=== PATIENT | female | born 2000 | race Caucasian/White ===

== ENCOUNTER → 2021-03-06 16:53 | Outpatient (CLI) | payer OTHER, BC, SELFPAY | PROVIDERS: Visit Provider Nurse Practitioner Family | DX: Z20.822 Contact with and (suspected) exposure to COVID-19 (principal); J02.9 Acute pharyngitis, unspecified | CPT/HCPCS: C9803; U0003; U0005 ==

== ENCOUNTER 2021-03-17 11:10 | Emergency (ER) | payer OTHER, SELFPAY ==
[2021-03-17 11:22] VITALS: BP 133/60; PULSE 83; RESP 16; TEMP 37; O2SAT 97; BMI 32.5
--- NOTE | 2021-03-17 11:26 | HMH.EDGENADL ---
ED Disposition Clinical Impression: Avulsion of skin of finger Qualifiers: Encounter type: initial encounter Qualified Code(s): S61.209A - Unspecified open wound of unspecified finger without damage to nail, initial encounter Disposition: Home, Self-Care Condition on Discharge: Good Additional Instructions: You have been evaluated for injury, skin avulsion. Please use topical antibiotic. Keep wound clean and dry for 24 hours. OK to wash with soap and water after that. Dress wound with bandage and non-adherent. Keep it elevated. Tylenol for pain. Follow-up with your primary care doctor for wound check within 1 week.. Return to the emergency department for any new or worsening symptoms, redness, drainage, swelling, signs of infection Referrals: Katerina Abad APRN [Primary Care Provider] - Time of Disposition: 11:34 - Critical Care Critical Care Time: No Attestation: On 03/17/21, the high probability of a clinically significant, sudden or life threatening deterioration of the following system(s) required my full and direct attention, intervention and personal management. The time I documented below is in addition to time spent performing reported procedures but includes the following listed in this critical care notation. Medical Decision Making - Medical Records Medical records reviewed: Yes: I reviewed the patient's medical records. - Dre Inquiry Pt receiving controlled substance: No Vital Signs: 03/17/21 11:22 Temperature 98.6 F Temperature Source Oral Pulse Rate [Left Radial] 83 Respiratory Rate 16 Blood Pressure [Right Arm] 133/60 Blood Pressure Mean [Right Arm] 84 Blood Pressure Source [Right Arm] Automatic Cuff Blood Pressure Position [Right Arm] Sitting 02 Sat by Pulse Oximetry 97 Oxygen Delivery Method Room Air Orders (Tests/Meds): ED MEDICATIONS Discontinued Medications Generic Name Dose Route Start Last Admin Trade Name Freq PRN Reason Stop Dose Admin Lidocaine HCl 5 ml 03/17/21 11:20 Lidocaine 1% 10ml Mdv IJ 03/17/21 11:21 ONCE ONE Medical Decision Narrative: In summary this is a 20-year-old [id number] female presenting to the emergency department with an avulsion injury to the distal aspect of the middle finger of the left hand. Patient clinically stable on arrival. Vital signs within normal limits. Tetanus up-to-date. Digital block performed with lidocaine. Well-tolerated. She had significant improvement in the pain. Wounds copiously irrigated with Hibiclens and water. There is not a flap or laceration amenable to repair. Dressed with nonadherent bandage. Patient counseled on wound care. Given return precautions. General Adult HPI - General Stated complaint: Cut tip of middle finger L hand Time Seen by Provider: 03/17/21 11:16 Mode of Arrival: Ambulatory Source of Information: Patient Limitations: No Limitations - History of Present Illness HPI narrative: 20-year-old female presenting to the emergency department with an injury to the middle finger of her left hand. Just prior to arrival, she was cutting the top off of a bottle. The knife she was using slipped and cut the distal aspect of her middle finger. She has an avulsion injury of the skin at the tip of the finger. Possibly a tiny courtney out of the corner of the nail. No pain in other parts of the finger. Bleeding is controlled with pressure. She is 16 weeks . No medications prior to arrival. - Related Data Home Medications Medication Instructions Recorded Confirmed sertraline 100 mg tablet 100 mg PO DAILY 03/01/20 03/06/21 promethazine 12.5 mg tablet 12.5 mg PO Q6H PRN 03/06/21 03/06/21 Allergies Allergy/AdvReac Type Severity Reaction Status Date / Time No Known Allergies Allergy Verified 03/06/21 15:43 [facility] History - Hepatitis A Screen Attestation statement:: This patient has been screened for Hepatitis A risk factors. Medical History: [place]
[2021-03-17 13:19] VITALS: BP 128/62; PULSE 80; RESP 16; TEMP 37; O2SAT 99
== END 2021-03-17 13:20 | disposition home or self-care (01) ==
PROVIDERS: Emergency Provider Emergency Medicine; PCP Nurse Practitioner Family
DX: S61.213A Laceration without foreign body of left middle finger without damage to nail, initial encounter (principal); W26.0XXA Contact with knife, initial encounter; Y92.019 Unspecified place in single-family (private) house as the place of occurrence of the external cause; F33.1 Major depressive disorder, recurrent, moderate; Z3A.16 16 weeks gestation of pregnancy
CPT/HCPCS: 12001; 99281

== ENCOUNTER 2021-07-07 15:21 | Outpatient (CLI) | payer OTHER, BC, SELFPAY ==
[2021-07-07 15:38] VITALS: BMI 31.0
[2021-07-07 16:29] VITALS: BP 129/69; PULSE 92; RESP 18; TEMP 37; O2SAT 98; BMI 36.0
--- NOTE | 2021-07-07 17:26 | HMH.ACPN2 ---
Internal Medicine - PN: Subj *Date: 07/07/21 *Time: 17:26 Interval history: She is a 20-year-old 2 para 1 at 32 weeks gestational age. Her child has a gastroenteritis and she has had some nausea, vomiting and diarrhea recently. She is a mildly dehydrated. She feels dizzy. Baby is active and nonstress test is reactive. Exam Vital signs and Labs for Last 24 Hours: Temp Pulse Resp BP Pulse Ox 98.6 F 92 H 18 129/69 98 07/07/21 16:29 07/07/21 16:29 07/07/21 16:29 07/07/21 16:29 07/07/21 16:29 I & O for Last 24 hours: Intake & Output 07/05/21 07/06/21 07/07/21 07/08/21 11:59 11:59 11:59 11:59 Weight 210 lb - Constitutional no acute distress - *Routine HEENT Exam Head: Present: normocephalic Eye: Present: EOMI, PERRL ENT: Present: mucous membranes moist Assessment and Plan (1) Nausea and vomiting of , antepartum Status: Acute Category: Medical Code(s): O21.9 - Vomiting of , unspecified (2) Dehydration during Status: Acute Category: Medical Code(s): O99.280 - Endocrine, nutritional and metabolic diseases complicating , unspecified trimester; E86.0 - Dehydration - Assessment and plan all Dx Assessment and Plan for all problems:: She received a liter of fluid and feels much better. She does have some Zofran at home and I encouraged her to take this. I have encouraged her to drink plenty of fluids. She has an appoint with her doctor in [place] in 48 hours.
== END 2021-07-07 17:40 | disposition home or self-care (01) ==
LOC: OBOUT 15:26 → OB 15:27
PROVIDERS: Visit Provider Nurse Practitioner Obstetrics & Gynecology
DX: O26.893 Other specified pregnancy related conditions, third trimester (principal); Z3A.32 32 weeks gestation of pregnancy; R11.2 Nausea with vomiting, unspecified; R19.7 Diarrhea, unspecified; E86.0 Dehydration
CPT/HCPCS: 59025; 96365; G0463

== ENCOUNTER 2022-03-27 16:35 | Emergency (ER) | payer OTHER, BC, SELFPAY ==
[2022-03-27 17:16] VITALS: BP 148/89; PULSE 90; RESP 18; TEMP 36.7; O2SAT 98; BMI 33.7
--- NOTE | 2022-03-27 17:51 | EXP.UTC ---
Discharge Plan Disposition Patient Disposition: Home, Self-Care Condition: Good Prescriptions Prescriptions: New meclizine 25 mg tablet 25 mg PO TID PRN (Reason: dizziness) Qty: 20 0RF fluticasone propionate [Flonase Allergy Relief] 50 mcg/actuation spray,suspension 1 spray intranasal DAILY Qty: 16 0RF Rx Instructions: administer into each nostril methylprednisolone [Medrol (Robi)] 4 mg tablets,dose pack See Rx Instructions .Route .COMPLEX 6 Days Qty: 21 0RF Rx Instructions: taper pack; No Action promethazine 12.5 mg tablet 12.5 mg PO Q6H PRN sertraline [Zoloft] 100 mg tablet 100 mg PO DAILY Referrals Follow up/Referrals: Provider,Referral, MD [Primary Care Provider] - See instructions Activity Restrictions/Add. Instructions Additional Instructions/Restrictions: Take medication as prescribed Follow up with your Family Doctor if no improvement or any worsening of symptoms Make sure to follow up if you continued to have numbness in finges on and off Straight to ER if any life threatening symptoms Clinical Impressions Clinical Impression: Vertigo Instructions Patient Instructions: DI for Vertigo, Vertigo, Meclizine Discharge ED Provider: Tina Marie [facility] General Stated complaint: nausea x 1 week,dizzy Mode of Arrival: Ambulatory Source of Information: Patient Limitations: No Limitations Time Seen by Provider: 03/27/22 17:52 Description of Symptoms (Recalled from Triage Doc. by RN): pt coes in with c/o dizziness, nausea, and left hand numbness. symptoms ongoing for 1 week HEENT Symptoms (Recalled from RN notes): No Resp Symptoms (Recalled from RN notes): No Skin Symptoms (Recalled from RN notes): No MS Symptoms (Recalled from RN notes): No Functional Status (Recalled from RN notes): n/a History of Present Illness Provider Complaint: Patient state that for about a week she has been having dizziness at times States that it feels like the room is spinning around her States that also she has been having tingling and numbness on and off in her left ring and little finger but not having any numbness at this time States that this evening she was still having a little dizziness so she came in Related Data Home Medications Medication Instructions Recorded Confirmed sertraline 100 mg tablet (Zoloft) 100 mg PO DAILY Anxiety 03/01/20 03/27/22 promethazine 12.5 mg tablet 12.5 mg PO Q6H PRN 03/06/21 03/06/21 Previous Rx's Medication Instructions Recorded fluticasone propionate 50 1 spray intranasal DAILY #16 grams 03/27/22 mcg/actuation nasal spray,suspension (Flonase Allergy Relief) meclizine 25 mg tablet 25 mg PO TID PRN dizziness #20 tabs 03/27/22 methylprednisolone 4 mg tablets in See Rx Instructions .Route 03/27/22 a dose pack (Medrol (Robi)) .COMPLEX 6 days #21 tabs Allergies Allergy/AdvReac Type Severity Reaction Status Date / Time No Known Allergies Allergy Verified 03/27/22 17:18 Worker's Comp Is this a Worker's Comp case?: No [facility] Disclaimer: The information contained in this section may have been updated after the patient was seen, as this information can be updated by other users. Social History Smoking Status: Never smoker alcohol intake: never substance use type: denies use current occupational status: employed Travel in the last 8 weeks: None household members: family housing: house ROS Obtained: Yes All systems reviewed & no additional complaints except as documented and Yes Systems reviewed as appropriate & no additional complaints except as documented Constitutional Constitutional: Reports system reviewed and no additional complaints, except as documented, Reports as per HPI, Denies fever(s) and Denies headache(s) ENT Ears, Nose, Mouth, and Throat: Reports system reviewed and no additional complaints, except as documented, Reports as per HPI, Reports dizziness, Denies otalgia and Denies headache(s) Ca
[2022-03-27 18:46] VITALS: BP 148/89; PULSE 90; RESP 18; TEMP 36.7
== END 2022-03-27 19:11 | disposition home or self-care (01) ==
PROVIDERS: Emergency Provider Nurse Practitioner
DX: R42 Dizziness and giddiness (principal)
CPT/HCPCS: 99212; G0463

== ENCOUNTER 2022-05-18 17:37 | Emergency (ER) | payer OTHER, BC, SELFPAY ==
[2022-05-18 17:45] VITALS: BP 111/75; PULSE 104; RESP 20; TEMP 37.2; O2SAT 98; BMI 33.6
--- NOTE | 2022-05-18 17:45 | EXP.UTC ---
Discharge Plan Disposition Patient Disposition: Home, Self-Care Condition: Good Prescriptions Prescriptions: New ofloxacin 0.3 % drops See Rx Instructions .ROUTE .COMPLEX Qty: 5 0RF Rx Instructions: put 2 drp into affected eye every 2 h x 2 days, then 1 drp 4 times/day days 3-7 methylprednisolone 4 mg Tablets,Dose Pack 4 mg PO DIRECTED Qty: 21 0RF No Action promethazine 12.5 mg tablet 12.5 mg PO Q6H PRN sertraline [Zoloft] 100 mg tablet 100 mg PO DAILY meclizine 25 mg tablet 25 mg PO TID PRN (Reason: dizziness) Qty: 20 0RF fluticasone propionate [Flonase Allergy Relief] 50 mcg/actuation spray,suspension 1 spray intranasal DAILY Qty: 16 0RF Rx Instructions: administer into each nostril methylprednisolone [Medrol (Robi)] 4 mg tablets,dose pack See Rx Instructions .Route .COMPLEX 6 Days Qty: 21 0RF Rx Instructions: taper pack; Referrals Follow up/Referrals: Anson Ponce MD [Primary Care Provider] - See instructions Activity Restrictions/Add. Instructions Additional Instructions/Restrictions: Use the eye drops as directed. Strict hand washing in the house hold, because conjunctivitis is very contagious. Follow up with your regular doctor. GO TO THE ER FOR ANY WORSENING SYMPTOMS OR CONCERNS Clinical Impressions Clinical Impression: Conjunctivitis of right eye Stand Alone Forms Stand Alone Forms: Work/School Release Instructions Patient Instructions: How to Instill Eye Drops, Methylprednisolone Discharge ED Provider: Abram Hicks [facility] H[place] General Stated complaint: Right eye redness,Swollen Time Seen by Provider: 05/18/22 17:45 History of Present Illness Provider Complaint: She states that for the past 2 days she has had right eye redness, irritation, and matting. She denies any injury or foreign body. Related Data Home Medications Medication Instructions Recorded Confirmed sertraline 100 mg tablet (Zoloft) 100 mg PO DAILY Anxiety 03/01/20 03/27/22 promethazine 12.5 mg tablet 12.5 mg PO Q6H PRN 03/06/21 03/06/21 Previous Rx's Medication Instructions Recorded fluticasone propionate 50 1 spray intranasal DAILY #16 grams 03/27/22 mcg/actuation nasal spray,suspension (Flonase Allergy Relief) meclizine 25 mg tablet 25 mg PO TID PRN dizziness #20 tabs 03/27/22 methylprednisolone 4 mg tablets in See Rx Instructions .Route 03/27/22 a dose pack (Medrol (Robi)) .COMPLEX 6 days #21 tabs methylprednisolone 4 mg tablets in 4 mg PO DIRECTED #21 tabs 05/18/22 a dose pack ofloxacin 0.3 % eye drops See Rx Instructions ophthalmic 05/18/22 (eye) .COMPLEX #5 mL Allergies Allergy/AdvReac Type Severity Reaction Status Date / Time No Known Allergies Allergy Verified 03/27/22 17:18 [facility] Disclaimer: The information contained in this section may have been updated after the patient was seen, as this information can be updated by other users. Medical History Anxiety Depression Social History Smoking Status: Never smoker alcohol intake: never substance use type: denies use current occupational status: employed Travel in the last 8 weeks: None household members: family housing: house ROS Obtained: Yes All systems reviewed & no additional complaints except as documented Constitutional Constitutional: Denies chills and Denies fever(s) Eyes Eyes: Reports eye discharge ENT Ears, Nose, Mouth, and Throat: Denies dizziness, Denies otalgia and Denies sore throat Cardiovascular Cardiovascular: Denies chest pain Respiratory Respiratory: Denies shortness of breath, Denies chest congestion, Denies cough, Denies stridor and Denies wheezing Gastrointestinal Gastrointestingal: Denies nausea or vomiting Musculoskeletal Musculoskeletal: Reports system reviewed and no additional complaints, except as docu
[2022-05-18 18:42] VITALS: BP 111/75; PULSE 104; RESP 20; TEMP 37.2; O2SAT 98
== END 2022-05-18 18:45 | disposition home or self-care (01) ==
PROVIDERS: Emergency Provider Nurse Practitioner Family; PCP Internal Medicine Adolescent Medicine
DX: H10.9 Unspecified conjunctivitis (principal)
CPT/HCPCS: 99212; 99213; G0463

== ENCOUNTER → 2022-07-14 08:34 | Outpatient (POV) | payer OTHER, BC, SELFPAY | PROVIDERS: Visit Provider Dermatology | DX: Z00.00 Encounter for general adult medical examination without abnormal findings (principal) ==

== ENCOUNTER 2023-03-30 15:35 | Outpatient (POV) | payer OTHER, BC, SELFPAY | END 2023-03-30 23:59 | disposition home or self-care (01) | LOC: SC 15:35 | PROVIDERS: PCP Internal Medicine Adolescent Medicine; Visit Provider Dermatology | DX: Z00.00 Encounter for general adult medical examination without abnormal findings (principal) ==

== ENCOUNTER 2023-07-06 10:43 | Outpatient (POV) | payer OTHER, BC, SELFPAY | END 2023-07-06 23:59 | disposition home or self-care (01) | LOC: SC 10:43 | PROVIDERS: PCP Internal Medicine Adolescent Medicine; Visit Provider Dermatology | DX: Z00.00 Encounter for general adult medical examination without abnormal findings (principal) ==

== ENCOUNTER 2023-08-10 13:37 | Outpatient (CLI) | payer OTHER, BC, SELFPAY ==
--- NOTE | 2023-08-10 13:44 | MR_ITS ---
FINAL REPORT CLINICAL HISTORY: .chronic headaches, getting worse past 2 months family hx of aneurysms FINDINGS: Multiple projection images of the brain arterial vasculature were obtained without contrast. The raw data images were also reviewed. The distal internal carotid, distal vertebral and basilar arteries have an unremarkable appearance without evidence of significant stenosis or occlusion. The proximal anterior, middle and posterior cerebral arteries have an unremarkable appearance. There is no evidence of significant stenosis or major branch occlusion. No aneurysm or vascular malformation is identified. IMPRESSION: Unremarkable MR angiogram of the head. Reviewed, Interpreted and Dictated by Billy Peñaloza III, MD Transcribed by Franca Georges Authenticated and [facility]
--- NOTE | 2023-08-10 13:45 | MR_ITS ---
FINAL REPORT CLINICAL HISTORY: FREQUENT HEADACHES .chronic headaches, getting worse past 2 months family hx of aneurysms FINDINGS: Multiplanar MR imaging of the brain was performed without and with contrast. Motion artifact is identified on many of the images. There is no evidence of intracranial hemorrhage or mass. No abnormal extra-axial fluid collection is seen. The ventricular size is within normal limits. There is no evidence of shift of the midline structures. The posterior fossa and brainstem have an unremarkable appearance. No area of abnormal restricted diffusion is identified. No abnormal contrast enhancement is seen. Normal major vessel vascular flow voids are noted. IMPRESSION: No acute intracranial abnormality identified. Reviewed, Interpreted and Dictated by Billy Peñaloza III, MD Transcribed by Franca Georges Authenticated and [facility]
[2023-08-10] MEDS: SODIUM CHLORIDE 0.9% 10ML SYR (RAD ONLY) 10 ML IV (14:40)
[2023-08-10] MEDS: GADOTERIDOL INJ 17ML SYRINGE 18 ML IV (14:40)
== END 2023-08-10 23:59 | disposition home or self-care (01) ==
LOC: RAD 13:37
PROVIDERS: PCP Physician Assistant; Visit Provider Physician Assistant
DX: R51.9 Headache, unspecified (principal)
CPT/HCPCS: 70544; 70553; A9576

== ENCOUNTER 2023-12-15 08:07 | Emergency (ER) | payer OTHER, BC, SELFPAY ==
[2023-12-15 08:19] VITALS: BP 141/87; PULSE 83; RESP 20; TEMP 37.1; O2SAT 97; BMI 33.6
--- NOTE | 2023-12-15 08:35 | EXP.UTC ---
Discharge Plan Disposition Patient Disposition: Home, Self-Care Condition: Good Prescriptions Prescriptions: New meclizine 25 mg tablet 25 mg PO TID PRN (Reason: dizziness or vertigo) Qty: 12 0RF fluticasone propionate [Flonase Allergy Relief] 50 mcg/actuation spray,suspension 2 spray intranasal DAILY Qty: 16 0RF Rx Instructions: administer into each nostril No Action sertraline [Zoloft] 100 mg tablet 100 mg PO DAILY norgestimate-ethinyl estradiol [Estarylla] 0.25-35 mg-mcg tablet 0.25 tab PO DAILY Patient Comments: TAKE ONE TABLET BY MOUTH EVERY DAY bupropion HCl 150 mg tablet extended release 24 hr 450 mg PO DAILY Patient Comments: TAKE ONE TABLET BY MOUTH EVERY DAY IN THE MORNING Referrals Follow up/Referrals: Martha Florian PA [Primary Care Provider] - See instructions Activity Restrictions/Add. Instructions Additional Instructions/Restrictions: Take medication as prescribed Slow steady movements to help keep you from falling while you are feeling dizzy Follow up with your Family Doctor if no improvement or no worsening of symptoms No driving if you are feeling dizzy Clinical Impressions Clinical Impression: Vertigo Instructions Patient Instructions: DI for Vertigo, Vertigo Print Language Print Language: Irish Discharge ED Provider: Tina Marie [facility] General Stated complaint: dizziness, nausea Mode of Arrival: Ambulatory Source of Information: Patient Time Seen by Provider: 12/15/23 08:35 Description of Symptoms (Recalled from Triage Doc. by RN): dizzy, nausea, left ear throbs at times and can hear her heartbeat in it hx of vertigo HEENT Symptoms (Recalled from RN notes): Yes (ear pain) Resp Symptoms (Recalled from RN notes): No Skin Symptoms (Recalled from RN notes): No MS Symptoms (Recalled from RN notes): No Functional Status (Recalled from RN notes): wnl History of Present Illness Provider Complaint: Patient states that she has a hx of Vertigo and inner ear issues states she has been having pain and throbbing in her left ear and this morning having dizziness and it makes her feel nauseous States feels like when she had Vertigo in the past Related Data Home Medications ?Medication ?Instructions ?Recorded ?Confirmed sertraline 100 mg tablet (Zoloft) 100 mg PO DAILY Anxiety 03/01/20 12/15/23 bupropion HCl 150 mg 24 hr tablet, 450 mg PO DAILY 12/15/23 12/15/23 extended release norgestimate 0.25 mg-ethinyl 0.25 tab PO DAILY 12/15/23 12/15/23 estradiol 35 mcg tablet (Estarylla) Previous Rx's ?Medication ?Instructions ?Recorded fluticasone propionate 50 2 spray intranasal DAILY #16 grams 12/15/23 mcg/actuation nasal spray,suspension (Flonase Allergy Relief) meclizine 25 mg tablet 25 mg PO TID PRN dizziness or 12/15/23 vertigo #12 tabs Allergies Allergy/AdvReac Type Severity Reaction Status Date / Time No Known Allergies Allergy Verified 03/27/22 17:18 Worker's Comp Is this a Worker's Comp case?: No [facility] Disclaimer: The information contained in this section may have been updated after the patient was seen, as this information can be updated by other users. Medical History Anxiety Depression Social History Smoking Status: Never smoker alcohol intake: never substance use type: denies use current occupational status: employed Travel in the last 8 weeks: None household members: family housing: house ROS Obtained: Yes All systems reviewed & no additional complaints except as documented and Yes Systems reviewed as appropriate & no additional complaints except as documented Constitutional Constitutional: Reports system reviewed and no additional complaints, except as documented and Reports as per HPI ENT Ears, Nose, Mouth, and Throat: Reports system reviewed and no additional complaints, except as documented, Reports as per HPI, Reports dizziness and Reports otalgia Cardiovascular Cardiovascular: Reports system reviewed and no additional complaints, except as documented and Reports as per HPI Respiratory Respiratory: Reports system reviewed and no additional complaints, except as documented and Reports as per HPI Gastrointestinal Gastrointestingal: Reports system reviewed and no additional complaints, except as documented, as per HPI and nausea Neurologic Neurologic: Reports dizziness Physical Exam General General appearance: alert and in no apparent distress ENT ENT exam: Present mucous membranes moist Expanded ENT Exam TM/Canal exam: Left TM: bulging Respiratory Respiratory exam: Present normal lung sounds bilaterally; Absent respiratory distress or wheezes Cardiovascular Cardiovascular exam: Present regular rate, normal rhythm and normal heart sounds Neurological Exam Neurological exam: Present alert, oriented X3 and normal gait Medical Decision Making Medical Records Screening: Per USPSTF and CDC recommendations, given the prevalence of disease in our region, it is our hospital?s policy to screen for HIV and viral Hepatitis for all patients aged 18 and over and those with ongoing risk factors. Dre Inquiry Pt receiving controlled substance: No Dre was queried for this patient: No Vital Signs: 12/15/23 08:19 Temperature 98.7 F Temperature Source Oral Pulse Rate [Left Brachial] 83 Respiratory Rate 20 Blood Pressure [Left Arm] 141/87 H Blood Pressure Mean [Left Arm] 105 02 Sat by Pulse Oximetry 97 Lab Data Lab results reviewed: Yes I reviewed the patient's lab results.
[2023-12-15 09:17] VITALS: BP 141/87; PULSE 83; RESP 20; TEMP 37.1
[2023-12-15 19:04] LABS: UTC Pregnancy Test, Urine Negative (Negative)
== END 2023-12-15 09:21 | disposition home or self-care (01) ==
PROVIDERS: Emergency Provider Nurse Practitioner; PCP Physician Assistant
DX: R42 Dizziness and giddiness (principal); H92.02 Otalgia, left ear; R11.0 Nausea
CPT/HCPCS: 81025; 99212; 99214; G0463

== ENCOUNTER 2024-01-27 13:42 | Emergency (ER) | payer OTHER, BC, SELFPAY ==
[2024-01-27 14:09] VITALS: BP 108/67; PULSE 119; RESP 18; TEMP 38.2; O2SAT 100; BMI 31.7
--- NOTE | 2024-01-27 14:35 | ED_ITS ---
Discharge Plan Disposition Patient Disposition: Home, Self-Care Condition: Good Prescriptions Prescriptions: New amoxicillin 500 mg capsule 500 mg PO TID 10 Days Qty: 30 0RF benzonatate 100 mg capsule 100 mg PO TID PRN (Reason: cough) Qty: 30 0RF No Action sertraline [Zoloft] 100 mg tablet 100 mg PO DAILY norgestimate-ethinyl estradiol [Estarylla] 0.25-35 mg-mcg tablet 0.25 tab PO DAILY Patient Comments: TAKE ONE TABLET BY MOUTH EVERY DAY bupropion HCl 150 mg tablet extended release 24 hr 450 mg PO DAILY Patient Comments: TAKE ONE TABLET BY MOUTH EVERY DAY IN THE MORNING aripiprazole 2 mg tablet 2 mg PO DAILY Patient Comments: TAKE ONE TABLET BY MOUTH EVERY DAY AT BEDTIME Referrals Follow up/Referrals: Martha Florian PA [Primary Care Provider] - See instructions Activity Restrictions/Add. Instructions Additional Instructions/Restrictions: *Monitor Temp, Over the counter Motrin or Tylenol as directed/as needed Tylenol every 4 hours and Motrin every 6 hours (as long as your family doctor has told you that you can take it) for fever or pain. and straight to ER if unable to lower temp less than 101.0 after medication given *Warm salt water gargles may help to soothe the throat *Throat Lozenges? *Warm fluids like tea with honey may help to soothe the throat? *Sleep elevated *Humidifier/Vaporizer *Flonase 2 sprays in each nostril daily but be aware that it may take 2-3 days before you notice improvement *Bromfed may cause drowsiness. Know how it effects you (your child) before driving, caring for small child, or sending your child to school. Not other antihistamines/allergy medications while taking bromfed Your throat swab was sent for culture. Those results are typically sent to your primary care. Be sure to follow up in 2-3 days with your family doctor/primary care physician if no improvement so they can review those result and treat if necessary. If you don?t have a primary care doctor, I recommend you get one but in the mean time, you will have to return to a walk in clinic Follow up IMMEDIATELY for new or worsening symptoms or no Noticeable improvement over the next 48-72 hours. 911 for difficulty breathing or swallowing You were tested for today for Upper Respiratory Panel with COVID19 your test result should be back in the next 24hours, you may check your results on the [facility] [employer] [facility] Clinical Impressions Clinical Impression: Otitis media Qualifiers: Otitis media type: unspecified Laterality: left Qualified Code(s): H66.92 - Otitis media, unspecified, left ear Instructions Patient Instructions: Middle Ear Infection, DI for Fever (Symptom) -- Adult Print Language Print Language: Malagasy Discharge ED Provider: Tina Marie [facility] HPI General Stated complaint: body aches, chills Mode of Arrival: Ambulatory Source of Information: Patient Time Seen by Provider: 01/27/24 14:35 Description of Symptoms (Recalled from Triage Doc. by RN): CLAMMY FEELING, CHILLS, BODY ACHES, EAR PAIN HEENT Symptoms (Recalled from RN notes): Yes Resp Symptoms (Recalled from RN notes): No Skin Symptoms (Recalled from RN notes): No MS Symptoms (Recalled from RN notes): No Functional Status (Recalled from RN notes): WNL History of Present Illness Provider Complaint: Patient states that child is home sick and in daycare, states that she has been having ear pain and pressure worse in her left ear and today she has been feeling feverish, chills, body aches, sweaty feeling and over all feeling ill States that as the day went on she was feeling worse so she left work and came in to get checked Related Data Home Medications ?Medication ?Instructions ?Recorded ?Confirmed sertraline 100 mg tablet (Zoloft) 100 mg PO DAILY Anxiety 03/01/20 01/27/24 bupropion HCl 150 mg 24 hr tablet, 450 mg PO DAILY 12/15/23 01/27/24 extended release norgestimate 0.25 mg-ethinyl 0.25 tab PO DAILY 12/15/23 01/27/24 estradiol 35 mcg tablet (Estarylla) aripiprazole 2 mg tablet 2 mg PO DAILY 01/27/24 01/27/24 Previous Rx's ?Medication ?Instructions ?Recorded amoxicillin 500 mg capsule 500 mg PO TID 10 days #30 caps 01/27/24 benzonatate 100 mg capsule 100 mg PO TID PRN cough #30 caps 01/27/24 Allergies Allergy/AdvReac Type Severity Reaction Status Date / Time No Known Allergies Allergy Verified 03/27/22 17:18 Worker's Comp Is this a Worker's Comp case?: No [facility] Disclaimer: The information contained in this section may have been updated after the patient was seen, as this information can be updated by other users. Medical History Anxiety Depression Social History Smoking Status: Never smoker alcohol intake: never substance use type: denies use current occupational status: employed Travel in the last 8 weeks: None household members: family housing: house ROS Obtained: Yes All systems reviewed & no additional complaints except as documented and Yes Systems reviewed as appropriate & no additional complaints except as documented Constitutional Constitutional: Reports system reviewed and no additional complaints, except as documented, Reports as per HPI, Reports body ache, Reports chills, Reports fever(s) and Reports headache(s) ENT Ears, Nose, Mouth, and Throat: Reports system reviewed and no additional complaints, except as documented, Reports as per HPI, Reports otalgia, Reports headache(s), Reports nasal congestion and Reports nasal discharge Cardiovascular Cardiovascular: Reports system reviewed and no additional complaints, except as documented and Reports as per HPI Respiratory Respiratory: Reports system reviewed and no additional complaints, except as documented and Reports as per HPI Gastrointestinal Gastrointestingal: Reports system reviewed and no additional complaints, except as documented and as per HPI Neurologic Neurologic: Reports headache(s) Physical Exam General General appearance: alert and in no apparent distress ENT ENT exam: Present mucous membranes moist Expanded ENT Exam TM/Canal exam: Left TM: erythema and bulging Nose exam: Absent sinus tenderness Throat exam: Present normal inspection Chest Chest inspection: Present normal inspection and symmetric chest wall rise Respiratory Respiratory exam: Present normal lung sounds bilaterally; Absent respiratory d istress or wheezes Cardiovascular Cardiovascular exam: Present regular rate, normal rhythm and tachycardia Abdominal Exam Abdominal exam: Present soft and normal bowel sounds; Absent distention, tenderness or guarding Neurological Exam Neurological exam: Present alert, oriented X3 and normal gait Medical Decision Making Medical Records Screening: Per USPSTF and CDC recommendations, given the prevalence of disease in our region, it is our hospital?s policy to screen for HIV and viral Hepatitis for all patients aged 18 and over and those with ongoing risk factors. Dre Inquiry Pt receiving controlled substance: No Dre was queried for this patient: No Vital Signs: 01/27/24 14:09 Temperature 100.8 F H Temperature Source Oral Pulse Rate [Left Radial] 119 H Respiratory Rate 18 Blood Pressure [Left Arm] 108/67 L Blood Pressure Mean [Left Arm] 80 02 Sat by Pulse Oximetry 100
[2024-01-27 14:37] LABS: UTC Influenza A Antigen Negative (Negative); UTC Influenza B Antigen Negative (Negative)
[2024-01-27 14:43] VITALS: BP 104/69
[2024-01-27] MEDS: ACETAMINOPHEN 325MG TAB 650 MG PO (14:45)
[2024-01-27 15:05] LABS: Adenovirus,PCR Not Detected (NotDetected); Bordetella Pertussis Not Detected (NotDetected); Chlamydophila Pneumoniae, PCR Not Detected (NotDetected); Coronavirus 19, PCR Not Detected (NotDetected); Coronavirus 229E Not Detected (NotDetected); Coronavirus NL63 Not Detected (NotDetected); Coronavirus OC43 Not Detected (NotDetected); Coronovirus HKU1,PCR Not Detected (NotDetected); Human Metapneumovirus Not Detected (NotDetected); Influenza A, PCR Not Detected (NotDetected); Influenza AH1, 2009 Not Detected (NotDetected); Influenza AH1, PCR Not Detected (NotDetected); Influenza AH3,PCR Not Detected (NotDetected); Influenza B, PCR Not Detected (NotDetected); Mycoplasma Pneumoniae, PCR Not Detected (NotDetected); Parainfluenza 1, PCR Not Detected (NotDetected); Parainfluenza 2, PCR Not Detected (NotDetected); Parainfluenza 3, PCR Not Detected (NotDetected); Parainfluenza 4, PCR Not Detected (NotDetected); Respiratory Syncytial Virus Not Detected (NotDetected); Rhinovirus/Enterovirus Not Detected (NotDetected)
[2024-01-27 15:07] VITALS: BP 104/69; PULSE 116; RESP 18; TEMP 38.2
== END 2024-01-27 15:07 | disposition home or self-care (01) ==
PROVIDERS: Emergency Provider Nurse Practitioner; PCP Physician Assistant
DX: H66.92 Otitis media, unspecified, left ear (principal)
CPT/HCPCS: 87265; 87486; 87581; 87632; 87635; 87804; 99213; G0381

== ENCOUNTER 2024-03-01 08:06 | Emergency (ER) | payer OTHER, BC, SELFPAY ==
[2024-03-01 08:15] VITALS: BP 131/66; PULSE 82; RESP 20; TEMP 36.9; O2SAT 96; BMI 30.2
[2024-03-01 08:28] LABS: UTC Strep Screen (Rapid) Negative (Negative)
--- NOTE | 2024-03-01 08:37 | ED_ITS ---
Discharge Plan Disposition Patient Disposition: Home, Self-Care Condition: Good Prescriptions Prescriptions: New promethazine-DM 6.25-15 mg/5 mL Syrup 5 ml PO Q6H PRN (Reason: Cough) Qty: 240 0RF azithromycin [Zithromax] 250 mg tablet 250 mg PO UD DOSE PK Qty: 6 0RF Rx Instructions: Take two (2) tablets today, then one (1) tablet days #2 thru #5 benzonatate 100 mg capsule 100 mg PO TIDP PRN (Reason: Cough) Qty: 30 0RF nlmenhbrshgbynd-ounypfuxm-AB [Bromfed DM] 2-30-10 mg/5 mL Syrup 5 ml PO Q6H PRN (Reason: Cough) Qty: 240 0RF No Action bupropion HCl 150 mg tablet extended release 24 hr 450 mg PO DAILY Patient Comments: TAKE ONE TABLET BY MOUTH EVERY DAY IN THE MORNING aripiprazole 2 mg tablet 2 mg PO DAILY Patient Comments: TAKE ONE TABLET BY MOUTH EVERY DAY AT BEDTIME norgestimate-ethinyl estradiol [Estarylla] 0.25-35 mg-mcg tablet 1 tab PO DAILY Patient Comments: TAKE ONE TABLET BY MOUTH EVERY DAY fluoxetine 20 mg capsule 20 mg PO DAILY Patient Comments: TAKE ONE CAPSULE BY MOUTH EVERY MORNING Referrals Follow up/Referrals: Anson Ponce MD [Primary Care Provider] - See instructions Activity Restrictions/Add. Instructions Additional Instructions/Restrictions: Drink plenty of fluids. Take tylenol or ibuprofen for pain or fever. Take the medications as directed. Follow up with your regular doctor. GO TO THE ER FOR ANY WORSENING SYMPTOMS Clinical Impressions Clinical Impression: Pharyngitis, Bronchitis Stand Alone Forms Stand Alone Forms: Work/School Release Instructions Patient Instructions: DI for Pharyngitis/Tonsillopharyngitis -- Adult, DI for Acute Bronchitis Print Language Print Language: [place]an Discharge ED Provider: Abram Hicks [facility] General Stated complaint: sore throat, cough Mode of Arrival: Ambulatory Source of Information: Patient Limitations: No Limitations Time Seen by Provider: 03/01/24 08:37 Description of Symptoms (Recalled from Triage Doc. by RN): PATIENT C/O COUGH AND SORE THROAT X 1 WEEK HEENT Symptoms (Recalled from RN notes): Yes Resp Symptoms (Recalled from RN notes): Yes Skin Symptoms (Recalled from RN notes): No MS Symptoms (Recalled from RN notes): No Functional Status (Recalled from RN notes): WNL Related Data Home Medications ?Medication ?Instructions ?Recorded ?Confirmed bupropion HCl 150 mg 24 hr tablet, 450 mg PO DAILY 12/15/23 03/01/24 extended release aripiprazole 2 mg tablet 2 mg PO DAILY 01/27/24 03/01/24 fluoxetine 20 mg capsule 20 mg PO DAILY 03/01/24 03/01/24 norgestimate 0.25 mg-ethinyl 1 tab PO DAILY 03/01/24 03/01/24 estradiol 35 mcg tablet (Estarylla) Previous Rx's ?Medication ?Instructions ?Recorded azithromycin 250 mg tablet 250 mg PO UD DOSE PK #6 tabs 03/01/24 (Zithromax) benzonatate 100 mg capsule 100 mg PO TIDP PRN Cough #30 caps 03/01/24 fcmphvxflkquvir-cyurdwyiayyoexl-TD 5 ml PO Q6H PRN Cough #240 mL 03/01/24 2 mg-30 mg-10 mg/5 mL oral syrup (Bromfed DM) promethazine-DM 6.25 mg-15 mg/5 mL 5 ml PO Q6H PRN Cough #240 mL 03/01/24 oral syrup Allergies Allergy/AdvReac Type Severity Reaction Status Date / Time No Known Allergies Allergy Verified 03/27/22 17:18 Worker's Comp Is this a Worker's Comp case?: No [facility] Disclaimer: The information contained in this section may have been updated after the patient was seen, as this information can be updated by other users. Medical History Anxiety Depression Social History Smoking Status: Never smoker alcohol intake: never substance use type: denies use current occupational status: employed Travel in the last 8 weeks: None household members: family housing: house ROS Obtained: Yes All systems reviewed & no additional complaints except as documented Constitutional Constitutional: Reports chills and Reports fever(s) Eyes Eyes: Denies eye discharge ENT Ears, Nose, Mouth, and Throat: Reports as per HPI Cardiovascular Cardiovascular: Denies chest pain Respiratory Respiratory: Denies chest congestion and Reports cough Gastrointestinal Gastrointestingal: Reports nausea; Denies abdominal pain, constipation, cramping, diarrhea or vomiting Musculoskeletal Musculoskeletal: Denies arthralgias Integumentary/Breasts Skin/Breast: Denies rash Neurologic Neurologic: Denies paresthesias Physical Exam General General appearance: alert and in no apparent distress Head Head exam: atraumatic, normocephalic and normal inspection Eye Eye exam: Present normal appearance, PERRL and EOMI ENT ENT exam: Present mucous membranes moist and normal external ear exam Expanded ENT Exam TM/Canal exam: Bilateral TM: erythema and bulging Nose exam: Absent sinus tenderness Mouth exam: Present normal external inspection; Absent drooling Teeth exam: Present normal inspection Throat exam: Present tonsillar erythema, tonsillomegaly and tonsillar exudate Neck Neck exam: Present normal inspection, full ROM and trachea midline; Absent tenderness, meningismus or lymphadenopathy Chest Chest inspection: Present normal inspection and symmetric chest wall rise; Absent tenderness Respiratory Respiratory exam: Present normal lung sounds bilaterally; Absent respiratory distress, wheezes, stridor or accessory muscle use Cardiovascular Cardiovascular exam: Present regular rate and normal rhythm; Absent systolic murmur or diastolic murmur Abdominal Exam Abdominal exam: Present soft and normal bowel sounds; Absent distention, tende rness, guarding, rebound or rigidity Extremities Exam Extremities exam: Present normal inspection and normal capillary refill; Absent calf tenderness Back Exam Back exam: Present normal inspection and full ROM; Absent tenderness, CVA tenderness (R) or CVA tenderness (L) Neurological Exam Neurological exam: Present alert, oriented X3 and CN II-XII intact Psychiatric Psychiatric exam: Present normal affect and normal mood Skin Skin exam: Present warm, dry, intact and normal color Medical Decision Making Medical Records Medical records reviewed: No I reviewed the patient's medical records. Screening: Per USPSTF and CDC recommendations, given the prevalence of disease in our region, it is our hospital?s policy to screen for HIV and viral Hepatitis for all patients aged 18 and over and those with ongoing risk factors. Dre Inquiry Pt receiving controlled substance: No Vital Signs: 03/01/24 08:15 Temperature 98.4 F Temperature Source Oral Pulse Rate [Left Brachial] 82 Respiratory Rate 20 Blood Pressure [Left Arm] 131/66 Blood Pressure Mean [Left Arm] 87 Blood Pressure Source [Left Arm] Automatic Cuff Blood Pressure Position [Left Arm] Sitting 02 Sat by Pulse Oximetry 96 Oxygen Delivery Method Room Air Lab Data Lab Results 03/01/24 08:22: Strep Scn Rapid Clinic Negative Orders (Tests/Meds): ORDERS Category Date Time Status Strep Screen Confirmation Stat Micro 03/01/24 08:22 Received
[2024-03-01 08:58] VITALS: BP 131/66; PULSE 82; RESP 20; TEMP 36.9; O2SAT 96
== END 2024-03-01 09:01 | disposition home or self-care (01) ==
PROVIDERS: Emergency Provider Nurse Practitioner Family; PCP Internal Medicine Adolescent Medicine
DX: J40 Bronchitis, not specified as acute or chronic (principal); R50.9 Fever, unspecified; R05.9 Cough, unspecified; J02.9 Acute pharyngitis, unspecified
CPT/HCPCS: 87880; 99212; G0381

== ENCOUNTER 2024-04-12 08:03 | Outpatient (CLI) | payer OTHER, BC, SELFPAY ==
--- NOTE | 2024-04-12 08:04 | US_ITS ---
PROCEDURE INFORMATION: Exam: US Left Breast, Complete Exam date and time: 04/12/2024 7:58 AM Age: 23 years old Clinical indication: Left breast pain. TECHNIQUE: Imaging protocol: Complete ultrasound of all four quadrants of the left breast and the retroareolar regions, including ultrasound of the axilla when performed. COMPARISON: No relevant prior studies available. FINDINGS: ULTRASOUND: Breast ultrasound findings: Left sonography, all 4 quadrants, retroareolar and the axilla. At 6 o'clock 2 cm from the nipple, solid-appearing gently lobulated avascular mass measuring 1.2 x 0.5 x 1.1 cm. At 10 o'clock 3 cm from the nipple, oval hyperechoic avascular mass measuring 1.6 x 0.5 x 0.7 cm. At 11 o'clock 3 cm from nipple, oval hyperechoic avascular mass measuring 0.7 x 0.4 x 0.7 cm. Sonographically unremarkable axillary lymph node. IMPRESSION: See comments Probably benign 1.2 cm mass at 6 o'clock. Follow up left sonography in six months to ensure stability, unless otherwise clinically indicated. Alternatively, the mass would be amenable to ultrasound-guided biopsy if tissue confirmation is preferred over surveillance. Probably benign hyperechoic masses at 10 and 11 o'clock, which may be lipomas, and suggest six-month follow-up left sonography unless otherwise clinically indicated. Further evaluation of a painful abnormality should be based on clinical grounds regardless of radiographic findings or lack thereof. ASSESSMENT: BI-RADS Category 3: Probably benign.
== END 2024-04-12 23:59 | disposition home or self-care (01) ==
LOC: RAD 08:04
PROVIDERS: PCP Internal Medicine Adolescent Medicine; Visit Provider Obstetrics & Gynecology
DX: N64.4 Mastodynia (principal)
CPT/HCPCS: 76641

== ENCOUNTER 2024-04-24 07:28 | Outpatient (CLI) | payer OTHER, BC, SELFPAY ==
--- NOTE | 2024-04-24 07:28 | US_ITS ---
FINAL REPORT CLINICAL HISTORY: US guided biopsy - DR. WES GARZA -- LT BREAST NODULE 600 FINDINGS: ULTRASOUND-GUIDED LEFT BREAST CORE BIOPSY TECHNIQUE: Limited images were obtained to localize region of interest. The left breast was prepped in a routine sterile fashion and locally anesthetized with 1% lidocaine. Standard written informed consent was obtained. The biopsy needle was positioned within the outer periphery of the lesion. A total of 3 passes were made with a 16 gauge core biopsy needle. A biopsy marker clip was deployed in satisfactory position. No mammogram was performed since clip as well seen on sonographic images and patient's age. Procedure was well tolerated . CONCLUSION: 1. Technically successful ultrasound guided core biopsy of left breast lesion as above. 2. Biopsy marker clip deployed Histopathology results reveal stromal fibrosis without atypia or carcinoma. Pathology is concordant with mammographic findings. Recommend 6 month sonographic follow-up as routine benign postbiopsy surveillance. Authenticated and ERN
== END 2024-04-24 23:59 | disposition home or self-care (01) ==
LOC: RAD 07:28
PROVIDERS: PCP Internal Medicine Adolescent Medicine; Visit Provider Obstetrics & Gynecology
DX: N64.4 Mastodynia (principal); N63.20 Unspecified lump in the left breast, unspecified quadrant
CPT/HCPCS: 19083

== ENCOUNTER 2024-10-31 08:41 | Outpatient (CLI) | payer OTHER, BC, SELFPAY ==
[2024-10-31 14:38] LABS: Influenza A, PCR Not Detected (NotDetected); Influenza B, PCR Not Detected (NotDetected)
[2024-10-31 22:16] LABS: Coronavirus 19, PCR Detected (NotDetected)
--- OUTSIDE RECORDS SUMMARY | 2024-11-01 10:13 | XMS_ITS | Clinical Summary ---
Author Organization [facility] Address [address] [place] [address] Care Team Providers Care Cosmetics Demonstrator Name Role Phone Valentina Ibarra MD Primary Care Provider [phone] Allergies No known active allergies Medications buPROPion XL (Wellbutrin XL) 150 MG 24 hr tablet 09/22/2021 Active buPROPion XL (Wellbutrin XL) 300 MG 24 hr tablet Take 1 tablet (300 mg) by mouth 1 (one) time each day. 09/15/2022 Active FLUoxetine (PROzac) 40 MG capsule Take 1 capsule (40 mg) by mouth 1 (one) time each day in the morning. 08/17/2023 Active norgestimate-eth inyl estradiol (Sprintec 28) 0.25-35 MG-MCG tabletIndication s:Encounter for control pills maintenance Take 1 tablet by mouth 1 (one) time each day. 28 tablet 12 11/18/2023 11/18/19 25 Active Active Problems Problem Noted Date Diagnosed Date Encounter for gynecological examination without abnormal finding 09/25/2022 Assessment & Plan (09/25/2022 4:07 PM EDT): - pap up to date - will need next year - OCP refilled - RTC for annual or prn Acute intractable tension-type headache 08/19/19 Assessment & Plan (09/24/2021 3:19 PM EDT): - has had headache for the last few weeks, ibuprofen not helping - Fioricet Rx sent Assessment & Plan (08/22/2021 2:15 PM EDT): - normal BP today, pre-eclampsia labs from last week normal - Fioricet helping some - rec increased hydration - return precautions provided Assessment & Plan (08/18/2021 2:55 PM EDT): - normal BP today, UA 30 protein - will obtain CBC, OB panel, and P:C - will try Fioricet Cough 06/20/2021 Assessment & Plan (06/20/2021 4:55 PM EDT): - will try Zpack Resolved Problems Problem Noted Date Diagnosed Date Resolved Date depression 09/24/20212022 Assessment & Plan (09/24/2021 3:22 PM EDT): - on zoloft, has restarted wellbutrin, has f/u with provider in 2 weeks - therapy options provided to patient Encounter for routine follow-up 09/24/2021 09/25/2022 Assessment & Plan (09/24/2021 3:20 PM EDT): - doing well - sprintec Rx sent for contraception - pap up to date - RTC as needed Supervision of other normal 08/26/2021 09/25/2022 Uterine size-date discrepanc y in third trimester 06/20/2021 09/25/2022 Assessment & Plan (06/20/2021 4:55 PM EDT): - growth US ordered 38 weeks gestation of 01/22/2021 08/26/2021 Assessment & Plan (08/22/2021 2:14 PM EDT): - labs reviewed, GBS negative - continue PNV - anticipate - RTC 1 week - return precautions provided Assessment & Plan (08/18/2021 2:34 PM EDT): - labs reviewed, GBS negative - continue PNV - anticipate - RTC 1 week Assessment & Plan (08/11/2021 2:48 PM EDT): - GBS today - labs reviewed - continue PNV - BSUS VERTEX. Would like to wait for labor but does not want to go past 40 weeks. IOL scheduled on 09/04. - RTC 1 week Assessment & Plan (07/25/2021 2:50 PM EDT): - labs reviewed - continue PNV - US at 36 weeks to check presentation - GBS at 36 weeks - RTC 2 weeks Assessment & Plan (07/09/2021 3:31 PM EDT): - Prelim growth US today: breech, post plac, BRONSON 14.5, EFW 46%, AC 30%, normal dopplers, BPP 11/03 - encouraged increased hydration - continue PNV - US at 36 weeks to check presentation - RTC 2 weeks Assessment & Plan (06/20/2021 4:55 PM EDT): - labs reviewed - continue PNV - growth US ordered today for S>D - RTC 2 weeks Assessment & Plan (06/04/2021 4:27 PM EST): - labs reviewed - Tdap today - continue PNV - pepcid Rx sent for heartburn - rec to try chiropractor for back/hip pain - growth US at 32 weeks for S>D - RTC 2 weeks Assessment & Plan (05/21/2021 1:49 PM EST): - labs reviewed, humberto US normal - glucola today - continue PNV - Tdap next visit - RTC 2 weeks Assessment & Plan (04/23/2021 3:53 PM EST): - Prelim humberto US: breech, post plac, normal anatomy - continue PNV - glucola given for next apt - RTC 4 weeks Assessment & Plan (03/26/2021 11:03 AM EST): - labs reviewed - FTS normal - boy on ultrasound! - continue PNV - anatomy ultrasound - RTC 4 weeks Assessment & Plan (02/24/2021 4:04 PM EST): - labs reviewed - normal - Normal NT today - bloodwork drawn - continue antiemetics - continue PNV - RTC 4 weeks - gender scan Assessment & Plan (01/22/2021 3:36 PM EDT): - labs and pap today - ultrasound today SIUP measuring 8w0d, c/w LMP - unisom, B6, phenergan for nausea - PNV sent to pharmacy - desires genetic screening - FTS US ordered - s/p flu shot - discussed COVID vaccine - is considering - RTC 4 weeks Encounters Date Type Department Care Team Description 10/13/2024 Refill Obstetrics & Gynecology [address] [place] [address] Rebecca Espinosa, GLUE DRIER OPERATOR, DNP Encounter for control pills maintenance from Last 3 Months Immunizations Immunization Administration Dates Next Due Tdap 06/04/2021 Family History Medical History Relation Name Comments Asthma Father Cancer Maternal Grandmother Miscarriages / Stillbirths Mother Kidney disease Paternal Grandfather Relation Name Status Comments Father Maternal Grandmother Mother Paternal Grandfather Social History Tobacco Use Types Packs/Day Years Used Date Smoking Tobacco: Never Smokeless Tobacco: Never Tobacco Cessation:Counseling Given: Not Answered Alcohol Use Standard Drinks/Week Comments Never 0 (1 standard drink = 0.6 oz pur e alcohol) PHQ-2 Answer Date Recorded Patient Health Questionnaire-2 Score 0 11/18/2023 [place] Depression Scale Answer Date Recorded [place] Depression Scale Total 19 09/22/2021 The thought of harming myself has occurred to me . Sometimes 09/22/2021 PHQ-2A Answer Date Recorded Patient Health Questionnaire-2 Score 0 09/25/2022 Comments No Sex and Gender Information Value Date Recorded Sex Assigned at Not on file Legal Sex Female 6:46 PM EDT Gender Identity Not on file Sexual Orientation Not on file Last Filed Vital Signs Vital Sign Reading Time Taken Comments Blood Pressure 120/80 11/18/2023 10:15 AM EDT Pulse 85 11/18/2023 10:15 AM EDT Temperature 36.8 C (98.2 F) 11/18/2023 10:15 AM EDT Respiratory Rate 14 11/18/2023 10:15 AM EDT Oxygen Saturation 98% 11/18/2023 10:15 AM EDT Inhaled Oxygen Concentration - - Weight 88 kg (194 lb 0.1 oz) 11/18/2023 10:15 AM EDT Height 162.6 cm (5' 4 ) 11/18/2023 10:15 AM EDT Body Mass Index 33.3 11/18/2023 10:15 AM EDT Plan of Treatment Health Maintenance Due Date Last Done Comments [facility]-/Child/Adol SDOH Screenings 1998 [facility]-Varicella Vaccines (1 of 2 - 13+ 2-dose series) 11/28/2011 HPV Vaccines (1 - 3-dose series) 2013 [facility]- SDOH Screenings 2016 [facility]-Adult SDOH Screenings 2016 [facility]-Hepatitis B Vaccines (1 of 3 - 19+ 3-dose series) 2017 [facility]-WIMBF-17 Vaccine (3 - season) 2023 02/28/2021, 01/31/2021 [facility]-Pap Smear 01/23/2024 01/22/2021 [facility]-Depression Screening 11/17/2024 024, 09/22/2021 [facility]-Influenza Vaccine (#1) 2024 [facility]-DTaP,Tdap,and Td Vaccine s (2 - Td or Tdap) 06/05/2031 06/04/2021 [facility]-Zoster Vaccines (1 of 2) 2048 [facility]-HIV Screening Completed 01/22/2021, 02/07/2019 [facility]-Hepatitis C Screening Completed 2020, 02/07/2019 [facility]-Obesity Intervention Completed 024, 09/25/2022 [facility]-HIB Vaccines Aged Out No longer e ligible based on patient's age to complete this topic [facility]-Hepatitis A Vaccines Aged Out No longer eligible based on patient's age to complete this topic [facility]-IPV Vaccines Aged Out No longer e ligible based on patient's age to complete this topic [facility]-Pneumococcal Vaccine: Pediatrics (0 to 5 Years) and At-Risk Patients (6 to 49 Years) Aged Out No longer eligible b ased on patient's age to complete this topic [facility]-Rotavirus Vaccines Aged Out No lo nger eligible based on patient's age to complete this topic Procedures Procedure Name Priority Date/Time Associated Diagnosis Comments PAP TEST - CYTOLOGY Routine 01/22/2021 3 :09 PM EDT test positive HEPATITIS C ANTIBODY W/REFLEX TO HCV QUANT PCR Routine 01/22/2021 2:33 PM EDT test positive HIV 1/2 ANTIBODY/ANTIGEN SCREEN WITH REFLEX TO HIV I/II DIFFERENTIATION Routine 01/22/2021 2:33 PM EDT test positive from Last 3 Months or Most Recently Relevant to Health Maintenance Results * Pap Smear (01/22/2021 3:09 PM EDT) Case Report Cytology Case: [id number] Authorizing Provider: Siri Crane MD Collected: 01/22/2021 1509 Ordering Location: Obstetrics & Gynecology Received: 01/23/2021 0929 First Screen: MARCIN [place] Specimen: ThinPrep Pap Test, Liquid-Based Cervical/Vaginal, CERVICAL/VAGINAL 01/28/2021 3:25 PM EDT [facility] Interpretation NEGATIVE FOR INTRAEPITHELIAL LESION OR MALIGNANCY 01/28/2021 3:25 PM EDT [facility] at 1525 EDT Specimen Adequacy Satisfactory for evaluation; endocervical/browning sformation zone component absent/insufficie nt. Slide scanned and imaged by [facility] with manual review of all selected rodriguez. 01/28/2021 3:25 PM EDT [facility] Cervical cytology is a screening test primarily for squamous cancers and precursors and has associated false negative and positive results. New technologies such as liquid based sampling may decrease but will not eliminate all false negative results. Regular screening and follow-up of unexplained clinical signs and symptoms are recommended to minimize false negative results. Please see the ASCCP website (www.asccp.org)fo r followup recommendations. If HPV testing was requested, correlation with the results is suggested (please call Microbiology at [phone] for results). 01/28/2021 3:25 PM EDT [facility] Menstrual Status 01/29/20 3:25 PM EDT [facility] Contraceptive History Not Applicable 01/28/2021 3:25 PM EDT [facility] Last Menstrual Period 2020 01/28/2021 3:25 PM EDT [facility] Screening Type Routine Screen 2020 3:25 PM EDT [facility] High Risk? No 01/28/2021 3:25 PM EDT [facility] HPV Testing Requested? No HPV Testing Requested 01/28/2021 3:25 PM EDT [facility] Previous Cancer History No 01/28/2021 3:25 PM EDT [facility] Swab Vaginal and cervical cytologic material / Unknown Non-blood Collection / Unknown 01/22/2021 3:09 PM EDT 01/23/2021 9:29 AM EDT Siri Crane MD LAB CYTOLOGY ORDERABLES Final Result [facility] [address] [place] [address] * HIV 1 & 2 Antibody/Antigen Screen (01/22/2021 2:33 PM EDT) [facility] & 2 Antibody/Anti gen Screen Nonreactive Nonreactive 01/22/2021 10:51 PM EDT [facility] Blood Venous blood specimen / Unknown Venipuncture / Unknown 01/22/2021 2:33 PM EDT 01/22/2021 9:04 PM EDT Siri Crane MD LAB BLOOD ORDERABLES Fin al Result [facility] [address] [place] [address] * Hepatitis C Antibody (01/22/2021 2:33 PM EDT) [facility] Hepatitis C Antibody Negative Negative 01/22/2021 10:10 PM EDT [facility] Blood Venous blood specimen / Unknown Venipuncture / Unknown 01/22/2021 2:33 PM EDT 01/22/2021 9:04 PM EDT Siri Crane MD LAB BLOOD ORDERABLES Fin al Result [facility] [address] [place] [address] from Last 3 Months or Most Recently Relevant to Health Maintenance Insurance [facility] Care Teams Cosmetics Demonstrator Relationship Specialty Start Date End Date Valentina Ibarra MD [facility] [place] [address] PCP - General 08/09/20
--- OUTSIDE RECORDS SUMMARY | 2024-11-01 10:13 | XMS_ITS | Encounter Summary ---
Author Organization Healthcare Address [address] [place] [address] Care Team Providers Care Intern Name Role Phone Valentina Ibarra MD Primary Care Provider [phone] Reason for Visit * Reason Comments Med Refill Encounter Details Date Type Department Care Team (Late st Contact Info) Description 10/13/2024 Refill Obstetrics & Gynecology [address] [place] [address] Rebecca Espinosa, AGILITY INSTRUCTOR, DNP [address] [place] [address] Encounter for control pills maintenance Social History Tobacco Use Types Packs/Day Years Used Date Smoking Tobacco: Never Smokeless Tobacco: Never Alcohol Use Standard Drinks/Week Comments Never 0 (1 standard drink = 0.6 oz pur e alcohol) PHQ-2 Answer Date Recorded Patient Health Questionnaire-2 Score 0 11/18/2023 [place] Depression Scale Answer Date Recorded [place] Depression Scale Total 19 09/22/2021 The thought of harming myself has occurred to me . Sometimes 09/22/2021 PHQ-2A Answer Date Recorded Patient Health Questionnaire-2 Score 0 09/25/2022 Comments No Sex and Gender Information Value Date Recorded Sex Assigned at Not on file Legal Sex Female 6:46 PM EDT Gender Identity Not on file Sexual Orientation Not on file documented as of this encounter Plan of Treatment Not on file documented as of this encounter Visit Diagnoses Diagnosis Encounter for control pills maintenance Surveillance of previously prescribed contraceptive pill documented in this encounter Additional Health Concerns Assessment Noted Time A fall risk assessment has been complete d for the patient 11/18/2023 10:16 AM EDT A Body Mass Index follow-up plan has been documented for the patient 11/18/2023 11:47 AM EDT documented as of this encounter Care Teams Intern Relationship Specialty Start Date End Date Valentina Ibarra MD [address] [place] [address] PCP - General 08/09/20 documented as of this encounter
--- OUTSIDE RECORDS SUMMARY | 2024-11-01 10:13 | XMS_ITS | Encounter Summary ---
Author Organization Healthcare Address [address] [place] [address] Care Team Providers Care Supervisor Welding Equipment Repairer Name Role Phone Valentina Ibarra MD Primary Care Provider [phone] Encounter Details Date Type Department Care Team (Late st Contact Info) Description 12/07/2023 Outside Procedure External Location [address] [place] [address] Jarek Young, SWITCHBOARD OPERATOR SUPERVISOR, DNP [address] [place] [address] Social History Tobacco Use Types Packs/Day Years Used Date Smoking Tobacco: Never Smokeless Tobacco: Never Alcohol Use Standard Drinks/Week Comments Never 0 (1 standard drink = 0.6 oz pur e alcohol) PHQ-2 Answer Date Recorded Patient Health Questionnaire-2 Score 0 11/18/2023 [place] Depression Scale Answer Date Recorded [place] Depression Scale Total 19 09/22/2021 The thought [...] on file documented as of this encounter Procedures Procedure Name Priority Date/Time Associated Diagnosis Comments US THYROID 12/07/2023 8:49 AM EDT documented in this encounter Results * US Thyroid (12/07/2023 8:49 AM EDT) Anatomical Region Laterality Modality Thyroid, Neck Ultrasound 12/07/2023 8:49 AM EDT Narrative 12/07/2023 2:33 [place] [address] Name: LONG THOMPSON Exam Date: 12/07/2023 : 2000 Age 23 years Gender: F Physician: JAREK YOUNG Facility: [facility] Facility HSV: Outpatient Exam: THYROID US Ultrasound thyroid HISTORY: Enlarged gland COMPARISON: None TECHNIQUE: B-mode, color Doppler and pulse Doppler was used. FINDINGS: The right gland measures 4.8 x 1.5 x 2 cm. The left gland measures 4.1 x 1 x 1.5 cm. There is a hypoechoic nodule superior pole right gland measuring 1 x 0.5 x 0.8 cm with hypoechoic border. This is a TI-RADS Category 3 nodule mildly suspicious no follow-up required since it measures less than 1.5 cm. IMPRESSION: Hypoechoic nodule measuring 1 cm superior pole right gland BI-RADS Category 3 highly suspicious no follow-up required. Electronically signed by:Raciel Curtis MD12/07/2023 02:30 PM EDT Dictated By: Raciel Curtis Transcribed By: Transcribed On: 12/07/2023 9:15 AM Electronically signed by: Raciel Curtis 12/07/2023 Thank you for referring LONG THOMPSON to [facility]. Legally authenticated by LYLA HUNTLEY 2023-12-07 09:15:31 Procedure Note Provider, Generic [place] - 12/07/2023 [place] [address] Name: LONG THOMPSON Exam Date: 12/07/2023 : 2000 Age 23 years Gender: F Physician: JAREK YOUNG Facility: [facility] Facility HSV: Outpatient Exam: THYROID US Ultrasound thyroid HISTORY: Enlarged gland COMPARISON: None TECHNIQUE: B-mode, color Doppler and pulse Doppler was used. FINDINGS: The right gland measures 4.8 x 1.5 x 2 cm. The left gland measures 4.1 x 1 x 1.5 cm. There is a hypoechoic nodule superior pole right gland measuring 1 x 0.5 x0.8 cm with hypoechoic border. This is a TI-RADS Category 3 nodule mildly suspicious no follow-up required since it measures less than 1.5 cm. IMPRESSION: Hypoechoic nodule measuring 1 cm superior pole right gland BI-RADSCategory 3 highly suspicious no follow-up required. Electronically signed by:Raciel Curtis MD12/07/2023 02:30 PM EDT RP Dictated By: Raciel Curtis Transcribed By: Transcribed On: 12/07/2023 9:15 AM Electronically signed by: Raciel Curtis 12/07/2023 Thank you for referring LONG THOMPSON to [facility]. Legally authenticated by LYLA HUNTLEY 2023-12-07 09:15:31 us Jarek Young APRN, EVELIO IMG US PROCEDURES Final Result documented in this encounter Visit Diagnoses Not on filedocumented in this encounter Additional Health Concerns Assessment Noted Time A fall risk assessment has been complete d for the patient 11/18/2023 10:16 AM EDT A Body Mass Index follow-up plan has been documented for the patient 11/18/2023 11:47 AM EDT documented as of this encounter Care Teams Supervisor Welding Equipment Repairer Relationship Specialty Start Date End Date Valentina Ibarra MD [address] [place] [address] PCP - General 08/09/20 documented as of this encounter
== END 2024-10-31 23:59 | disposition home or self-care (01) ==
LOC: LAB.DROPOF 11-01 10:11
PROVIDERS: PCP Student in an Organized Health Care Education/Training Program; Visit Provider Student in an Organized Health Care Education/Training Program
DX: J06.9 Acute upper respiratory infection, unspecified (principal)
CPT/HCPCS: 87631

== ENCOUNTER 2024-11-09 07:59 | Outpatient (CLI) | payer OTHER, BC, SELFPAY ==
--- NOTE | 2024-11-09 08:00 | US_ITS ---
PROCEDURE INFORMATION: Exam: US Left Breast, Complete Exam date and time: 11/09/2024 7:57 AM Age: 23 years old Clinical indication: Six-month follow-up benign left 6 o'clock axis best biopsy TECHNIQUE: Imaging protocol: Complete ultrasound of all four quadrants of the left breast and the retroareolar regions, including ultrasound of the axilla when performed. COMPARISON: US BIOPSY BREAST LT 04/24/2024 7:59 AM FINDINGS: ULTRASOUND: Breast ultrasound findings: Sonographic images of the left breast including the retroareolar region, all 4 quadrants and the axilla do not demonstrate any solid masses. 0.3 cm cyst in the 10 o'clock axis 2 cm from the nipple. No architectural distortion or acoustical shadowing. No skin thickening or axillary adenopathy. IMPRESSION: No sonographic evidence of malignancy. ASSESSMENT: BI-RADS Category 2: Benign.
--- OUTSIDE RECORDS SUMMARY | 2024-11-09 08:01 | XMS_ITS | Encounter Summary ---
Author Organization Healthcare Address [address] [place] [address] Care Team Providers Care Microgrinder Operator Name Role Phone Valentina Ibarra MD Primary Care Provider [phone] Encounter Details Date Type Department Care Team (Late st Contact Info) Description 12/07/2023 Outside Procedure External Location [address] [place] [address] Jarek Young, GENERAL ENGINEERING TEACHER, DNP [address] [place] [address] Social History Tobacco Use Types Packs/Day Years Used Date Smoking Tobacco: Never Smokeless Tobacco: Never Alcohol Use Standard Drinks/Week Comments Never 0 (1 standard drink = 0.6 oz pur e alcohol) PHQ-2 Answer Date Recorded Patient Health Questionnaire-2 Score 0 11/18/2023 [place] Depression Scale Answer Date Recorded [place] Depression Scale Total 19 09/22/2021 The thought [...] AM EDT Narrative 12/07/2023 2:33 [place] [address] Name: LONG THOMPSON Exam Date: 12/07/2023 : 2000 Age 23 years Gender: F Physician: JAREK YOUNG Facility: [facility] Facility HSV: Outpatient Exam: THYROID US [...] Thank you for referring [facility] THOM[facility] to [facility]. Legally authenticated by LYLA HUNTLEY 2023-12-07 09:15:31 Procedure Note Provider, Generic [facility] - 12/07/2023 [place] [address] Name: LONG THOMPSON Exam Date: 12/07/2023 : 2000 Age 23 years Gender: F Physician: JAREK YOUNG Facility: [facility] Facility HSV: Outpatient Exam: THYROID US [...] Thank you for referring LONG THOMPSON to [facility]. Legally authenticated by LYLA HUNTLEY 2023-12-07 [...] documented as of this encounter Care Teams Microgrinder Operator Relationship Specialty Start Date End Date Valentina Ibarra MD [address] [place] [address] PCP - General 08/09/20 documented as of this encounter
--- OUTSIDE RECORDS SUMMARY | 2024-11-09 08:01 | XMS_ITS | Encounter Summary ---
Author Organization Healthcare Address [address] [place] [address] Care Team Providers Care Crossing Gateman Name Role Phone Valentina Ibarra MD Primary Care Provider [phone] Reason for Visit * Reason Comments Med Refill Encounter Details Date Type Department Care Team (Late st Contact Info) Description 10/13/2024 Refill Obstetrics & Gynecology [address] [place] [address] Rebecca Espinosa, AIRCRAFT MACHINIST HELPER, DNP [address] [place] [address] Encounter for control pills maintenance Social History Tobacco Use Types Packs/Day Years Used Date Smoking Tobacco: Never Smokeless Tobacco: Never Alcohol Use Standard Drinks/Week Comments Never 0 (1 standard drink = 0.6 oz pur e alcohol) PHQ-2 Answer Date Recorded Patient Health Questionnaire-2 Score 0 11/18/2023 [place] Depression Scale Answer Date Recorded [place] Depression Scale Total 19 09/22/2021 The thought [...] documented as of this encounter Care Teams Crossing Gateman Relationship Specialty Start Date End Date Valentina Ibarra MD [address] [place] [address] PCP - General 08/09/20 documented as of this encounter
--- OUTSIDE RECORDS SUMMARY | 2024-11-09 08:01 | XMS_ITS | Clinical Summary ---
Author Organization [facility] Address [address] [place] [address] Care Team Providers Care [employer] Name Role Phone Valentina Ibarra MD Primary Care Provider Allergies No known active allergies Medications buPROPion [...] Description 10/13/2024 Refill Obstetrics & Gynecology [address] [place] [address] Rebecca Espinosa, NUCLEAR OPERATIONS SPECIALIST, DNP Encounter for control pills maintenance from [...] Recorded Patient Health Questionnaire-2 Score 0 11/18/2023 [place] Depression Scale Answer Date Recorded [place] Depression Scale Total 19 09/22/2021 The thought [...] of 3 - 19+ 3-dose series) 2017 [id number] Vaccine (3 - season) 2023 02/28/2021, 01/31/2021 [...] 3:09 PM EDT) Case Report Cytology Case: [id number] Authorizing Provider: Siri Crane MD Collected: 01/22/2021 1509 Ordering Location: Obstetrics & Gynecology Received: 01/23/2021 0929 First Screen: MARCIN [place] Specimen: ThinPrep Pap Test, Liquid-Based Cervical/Vaginal, CERVICAL/VAGINAL 01/28/2021 3:25 PM EDT [facility] Interpretation NEGATIVE FOR INTRAEPITHELIAL LESION OR MALIGNANCY 01/28/2021 3:25 PM EDT [facility] at 1525 EDT Specimen Adequacy Satisfactory for evaluation; endocervical/browning sformation zone component absent/insufficie nt. Slide scanned and imaged by [employer] with manual review of all selected rodriguez. 01/28/2021 3:25 PM EDT [facility] Cervical cytology is a screening test [...] results is suggested (please call Microbiology at [phone] for results). 01/28/2021 3:25 PM EDT [facility] Menstrual Status 01/29/20 3:25 PM EDT [facility] Contraceptive History Not Applicable 01/28/2021 3:25 PM EDT [facility] Last Menstrual Period 2020 01/28/2021 3:25 PM EDT [facility] Screening Type Routine Screen 2020 3:25 PM EDT [facility] High Risk? No 01/28/2021 3:25 PM EDT [facility] HPV Testing Requested? No HPV Testing Requested 01/28/2021 3:25 PM EDT [facility] Previous Cancer History No 01/28/2021 3:25 PM EDT [facility] Swab Vaginal and cervical cytologic material / Unknown Non-blood Collection / Unknown 01/22/2021 3:09 PM EDT 01/23/2021 9:29 AM EDT Siri Crane MD LAB CYTOLOGY ORDERABLES Final Result [facility] [address] [place] [address] * HIV 1 & 2 Antibody/Antigen Screen (01/22/2021 2:33 PM EDT) [facility] HIV 1 & 2 Antibody/Anti gen Screen Nonreactive Nonreactive 01/22/2021 10:51 PM EDT [facility] Blood Venous blood specimen / Unknown Venipuncture / Unknown 01/22/2021 2:33 PM EDT 01/22/2021 9:04 PM EDT Siri Crane MD LAB BLOOD ORDERABLES Fin al Result [facility] [address] [place] [address] * Hepatitis C Antibody (01/22/2021 2:33 PM EDT) [facility] Hepatitis C Antibody Negative Negative 01/22/2021 10:10 PM EDT [facility] Blood Venous blood specimen / Unknown Venipuncture / Unknown 01/22/2021 2:33 PM EDT 01/22/2021 9:04 PM EDT Siri Crane MD LAB BLOOD ORDERABLES Fin al Result [facility] [address] [place] [address] from Last 3 Months or Most Recently Relevant to Health Maintenance Insurance [facility] Care Teams [employer] Relationship Specialty Start Date End Date Valentina Ibarra MD [facility] [place] [address] PCP - General 08/09/20
== END 2024-11-09 23:59 | disposition home or self-care (01) ==
LOC: RAD 07:59
PROVIDERS: PCP Internal Medicine Adolescent Medicine; Visit Provider Obstetrics & Gynecology
DX: N60.02 Solitary cyst of left breast (principal)
CPT/HCPCS: 76641